=== PATIENT | male | born 1965 | race Caucasian/White ===

== ENCOUNTER 2017-10-20 07:50 | Day surgery (SDC) | payer OTHER ==
[2017-10-20 09:57] LABS: ALANINE AMINOTRANSFERASE 24 IU/L (13-69); ALBUMIN 3.9 g/dl (3.3-4.9); ALKALINE PHOSPHATASE 45 IU/L (42-121); ANION GAP 14 (8-16); ASPARTATE AMINO TRANSFERASE 11 IU/L (15-46); BILIRUBIN,INDIRECT 0.7 mg/dl (0-1.1); BILIRUBIN,TOTAL 0.7 mg/dl (0.2-1.3); BLOOD UREA NITROGEN 20 mg/dl (7-20); CALCIUM 8.8 mg/dl (8.4-10.2); CARBON DIOXIDE 30 mmol/L (21-31); CHLORIDE 103 mmol/L (97-110); CREATININE 1.05 mg/dl (0.61-1.24); GLUCOSE 102 mg/dl (70-220); POTASSIUM 4.5 mmol/L (3.5-5.1); SODIUM 142 mmol/L (135-144); TOTAL PROTEIN 6.9 g/dl (6.1-8.1)
[2017-10-20] MEDS ORDERED: ONDANSETRON 4 MG INJ IV (11:00)
[2017-10-20] MEDS ORDERED: MEPERIDINE 25 MG INJ IV (11:00)
[2017-10-20] MEDS ORDERED: HYDROmorphONE (0.2 MG/ML) 10ML SYG IV ×3 (11:00)
[2017-10-20] MEDS ORDERED: DIPHENHYDRAMINE 50 MG INJ IV (11:00)
[2017-10-20] MEDS ORDERED: FENTAnyl 50 MCG/ML VIAL IV (11:00)
[2017-10-20] MEDS ORDERED: PROCHLORPERAZINE 10 MG INJ IV (11:00)
[2017-10-20] MEDS ORDERED: MIDAZOLAM 1 MG/ML 2 ML INJ (11:50)
[2017-10-20] MEDS ORDERED: FENTAnyl 50 MCG/ML VIAL (11:52)
[2017-10-20] MEDS ORDERED: FAMOTIDINE 20 MG INJ (12:09)
[2017-10-20] MEDS ORDERED: LIDOCAINE 2% (SDV) 5 ML INJ (12:09)
[2017-10-20] MEDS ORDERED: ONDANSETRON 4 MG INJ (12:09)
[2017-10-20] MEDS ORDERED: PROPOFOL 40 ML (12:09)
[2017-10-20] MEDS ORDERED: SUCCINYLCHOLINE CHLORIDE 100 MG/5 ML SYG IV (12:09)
[2017-10-20] MEDS ORDERED: DEXAMETHASONE 4 MG/ML 1 ML INJ (12:09)
[2017-10-20] MEDS: COCAINE 4% 4 ML TOP (12:26)
[2017-10-20] MEDS: LIDOCAINE 1%/EPI (1:100,000) (MDV) 20 ML INJ (12:26)
[2017-10-20] MEDS: LIDOCAINE 1%/EPI 30 ML INJ (12:27)
[2017-10-20] MEDS ORDERED: HYDROmorphONE 2 MG/ML SYG (12:36)
[2017-10-20] MEDS: BACITRACIN/POLYMYXIN 28.35 GM OINT TOP (12:39)
[2017-10-20] MEDS ORDERED: HYDROCODONE/APAP (7.5/325) TAB PO (13:53)
== END 2017-10-20 14:02 | disposition home or self-care (01) ==
LOC: SDS 07:50
DX: J34.2 Deviated nasal septum (principal); J34.3 Hypertrophy of nasal turbinates; J44.9 Chronic obstructive pulmonary disease, unspecified
CPT/HCPCS: 30140; 80053; 88300; 93005

== ENCOUNTER 2018-06-07 08:59 | Day surgery (SDC) | payer OTHER ==
[2018-06-07] MEDS ORDERED: LIDOCAINE 2% (SDV) 5 ML INJ ×2 (11:49)
[2018-06-07] MEDS ORDERED: PROPOFOL 100 ML (11:49)
== END 2018-06-07 13:25 | disposition home or self-care (01) ==
LOC: GIL 08:59
DX: Z12.11 Encounter for screening for malignant neoplasm of colon (principal); D12.5 Benign neoplasm of sigmoid colon; K57.90 Diverticulosis of intestine, part unspecified, without perforation or abscess without bleeding; K64.8 Other hemorrhoids; K64.4 Residual hemorrhoidal skin tags; I12.9 Hypertensive chronic kidney disease with stage 1 through stage 4 chronic kidney disease, or unspecified chronic kidney disease; N18.9 Chronic kidney disease, unspecified; J44.9 Chronic obstructive pulmonary disease, unspecified
CPT/HCPCS: 45380; 88305